=== PATIENT | male | born 1945 | race African-American/Black ===

== ENCOUNTER 2019-07-26 12:33 | Inpatient (IN) ==
[2019-07-26] MEDS ORDERED: ASPIRIN PO ONE (12:49)
[2019-07-26] MEDS ORDERED: ASPIRIN PR ONE (12:49)
--- NOTE | 2019-07-26 13:12 | Diag Imaging Result Doc PS360 ---
EXAM: CHEST-2 VIEWS 07/26/2019 HISTORY: CP TECHNIQUE: PA and lateral chest COMMENT: There is some apparent platelike fibrosis in the right base. The inspiration is slightly better than on 09/24/2018, otherwise are has been no significant change. IMPRESSION: Stable chest. Electronically signed by Yasir Lara 07/26/2019 1:10 PM
--- NOTE | 2019-07-26 13:26 | EKG Report ---
Test Performed on : 07/26/2019 12:40:16 PM Test Reason : CP Blood Pressure : / mmHG Vent. Rate : 062 BPM Atrial Rate : 062 BPM P-R Int : 160 ms QRS Dur : 104 ms QT Int : 448 ms P-R-T Axes : 073 016 054 degrees QTc Int : 454 ms Normal sinus rhythm. Normal ECG When compared with ECG of 17-JAN-2019 12:26, ST no longer depressed in Inferior leads Unconfirmed Result
[2019-07-26 13:39] LABS: BASO# 0.02 X1000 (0.0-0.2); BASO% 0.2 % (0.0-0.8); EOS# 0.64 X1000 (0.0-0.7); EOS% 7.5 % (0.0-10.0); HEMATOCRIT 27.1 % (42.0-52.0); HEMOGLOBIN 8.1 g/dL (14.0-18.0); IMM GRAN# 0.02 X1000 (0.0-0.04); IMM GRAN% 0.2 % (0.0-0.5); LYMPH# 2.35 X1000 (1.2-3.4); LYMPH% 27.5 % (20.5-51.1); MCH 23.7 PG (27-31); MCHC 29.9 g/dL (33-37); MCV 79.2 FL (81-99); MONO# 0.63 X1000 (0.11-0.59); MONO% 7.4 % (1.7-9.3); MPV 9.5 FL (7.4-10.4); NEUT# 4.88 X1000 (1.4-6.5); NEUT% 57.2 % (42.2-75.2); PLT 525 X1000 (130-400); RBC 3.42 XMIL (4.7-6.1); RDW 16.4 % (11.5-14.5); WBC 8.54 X1000 (4.8-10.8)
[2019-07-26 13:46] LABS: INR 1.6; PROTIME 19.4 Seconds (11.0-16.0)
[2019-07-26 13:47] LABS: PTT 39.3 Seconds (22.3-41.8)
[2019-07-26 14:04] LABS: ALB/GLOB RATIO 1.2; ALBUMIN 3.9 g/dL (3.5-5.0); CALCIUM 9.5 mg/dL (8.8-10.2); POTASSIUM 4.5 mmol/L (3.5-5.1); TOTAL BILIRUBIN 0.15 mg/dL (0.20-1.00); TOTAL PROTEIN 7.1 g/dL (6.3-8.3)
[2019-07-26 14:34] LABS: CK INDEX 1.3 (0.0-2.5); CK-MB 3.61 ng/mL (0.0-5.0)
[2019-07-26] MEDS ORDERED: NITROGLYCERIN SL ONE (16:34)
--- NOTE | 2019-07-26 19:25 | PROVIDER DOCUMENTATION ---
HPI-Chest Pain - General Chief Complaint: Chest Pain Stated Complaint: CHEST PAIN Time Seen by Provider: 07/26/19 13:54 Source: patient Allergies/Adverse Reactions: Patient Allergies Allergy/AdvReac Type Severity Reaction Status Date / Time No Known Allergies Allergy Verified 07/26/19 16:17 Home Medications: Home Medication List Medication Instructions Recorded Confirmed Last Taken Type Amlodipine [Norvasc] 10 mg PO DAILY 06/11/15 07/26/19 01/24/19 09:00 History Fenofibrate [Tricor] 145 mg PO DAILY 06/11/15 07/26/19 01/24/19 09:00 History Rivaroxaban [Xarelto] 15 mg PO DAILY 06/11/15 07/26/19 01/24/19 09:00 History Rosuvastatin Calcium [Crestor] 40 mg PO DAILY 10/12/17 07/26/19 01/24/19 09:00 History Allopurinol 300 mg PO BID 05/02/18 07/26/19 01/24/19 09:00 History Amiodarone [Cordarone] 200 mg PO BID 05/02/18 07/26/19 01/25/19 05:00 History Carvedilol [Coreg] 12.5 mg PO BID #120 tab 09/25/18 07/26/19 01/25/19 05:00 Rx Tramadol HCl [Ultram] 50 mg PO Q4H PRN PRN #10 tab 01/25/19 07/26/19 Unknown Rx - History of Present Illness-CP Nature of Presenting Problem: h/o HTN, HLD, / Afib, smoker, here for left sided chest pain of 2 days duration. has not taken medication,. pain is off and on and no associated diaphoresis, sob, orthopnea or pnd. He reports no other symptoms Location: reports: other (left sided) Chest Pain Radiation: reports: no radiation Quality of Pain: reports: other (stabbing) Onset/Duration: 2 days ago Timing: still present Modifying Factors: improves with: nothing Associated Symptoms: reports: denies symptoms Nitro Today/Relief: 0.4 mg x 1 Aspirin Treatment Today: 325 mg x 1 Similar Symptoms Previously?: Yes Recently Seen Here or By Another Healthcare Provider: Yes Review of Systems - Adult - REVIEW OF SYSTEMS - ADULT Constitutional: reports: no symptoms reported Eyes: reports: no symptoms reported Ears, Nose, Mouth & Throat: reports: no symptoms reported Cardiovascular: reports: see HPI Respiratory: reports: no symptoms reported Gastrointestinal: reports: no symptoms reported Genitourinary: reports: no symptoms reported Musculoskeletal: reports: no symptoms reported Integumentary: reports: no symptoms reported Neurological: reports: no symptoms reported Psychiatric: reports: no symptoms reported Hematologic/Lymphatic: reports: no symptoms reported Allergic/Immunologic: reports: no symptoms reported Past History - Adult - PAST MEDICAL HISTORY-ADULT Review of Records: reports: Nursing Assessment Review, Medications Reviewed, Social history reviewed & non-contributory. Major Childhood Illnesses: reports: denies history Cardiovascular: reports: HTN, hyperlipidemia Respiratory: reports: denies history, COPD Gastrointestinal: reports: denies history Obstetrical/Gynecological: reports: denies history Genitourinary: reports: kidney disease, other (L renal stent) Musculoskeletal: reports: arthritis, other (gout) Neurological: reports: denies history Endocrine/Immune: reports: denies history Other Conditions: reports: denies history - PRIOR SURGERIES/PROCEDURES Surgical/Procedure History: reports: indwelling device (L renal stent), other (kidney removed) - PRIOR HOSPITALIZATIONS Prior Hospitalizations: reports: for other non-related - IMMUNIZATION STATUS Childhood Immunizations: See Nurse Assessment Flu Vaccine: See Nurse Assessment - FAMILY HISTORY Family History: reviewed, not pertinent - SOCIAL HISTORY Smoking: cigarettes Substance Use: none/never Alcohol Use Frequency: never Physical Exam-General - CONSTITUTIONAL General Appearance: appears well, alert - EYES Eyes: PERRL/EOMI - HEAD, EARS, NOSE, MOUTH & THROAT HENMT: normocephalic/atraumatic - NECK Neck: non-tender, full range of motion, supple - RESPIRATORY Respiratory: chest non-tender, lungs clear, normal breath sounds - CARDIOVASCULAR Cardiovascular: regular rate, rhythm, no edema - GASTROINTESTINAL (ABDOMEN) Abdominal Exam: normal bowel sounds - MUSCULOSKELETAL Back Exam: normal inspection Extremity: normal range of motion, non-tender - SKIN Integumentary: normal color - PSYCHIATRIC Psych/Mental Status: oriented x 3 - HEART Score HEART Score: History: Moderately Suspicious HEART Score: ECG: Normal HEART Score: Age: > or = 65 Years HEART Score: Risk Factors for Atherosclerotic Disease: > or = 3 Risk Factors or History of Atherosclerotic Disease HEART Score: Troponin: 1-3x Normal Limit Total HEART Score:: 6 Progress - PLAN OF CARE/RESULTS Progress/Plan/Lab Results: Vital Signs - 8 hr 07/26/19 17:39 07/26/19 18:51 07/26/19 19:15 Temperature Pulse Rate 79 74 78 Respiratory Rate 23 21 18 Blood Pressure 138/77 138/77 O2 Sat by Pulse Oximetry 96 98 99 07/26/19 21:52 07/26/19 21:53 07/26/19 22:00 Temperature 97.5 F L Pulse Rate 67 65 74 Respiratory Rate 26 H 20 18 Blood Pressure 139/76 O2 Sat by Pulse Oximetry 98 97 100 07/26/19 22:15 07/26/19 22:22 07/26/19 22:23 Temperature Pulse Rate 67 59 L 74 Respiratory Rate 21 15 18 Blood Pressure 142/86 O2 Sat by Pulse Oximetry 96 98 100 07/26/19 22:30 07/26/19 22:32 07/26/19 22:45 Temperature Pulse Rate 75 75 74 Respiratory Rate 19 24 21 Blood Pressure 147/99 O2 Sat by Pulse Oximetry 98 99 97 07/26/19 23:49 Temperature Pulse Rate 60 Respiratory Rate 20 Blood Pressure O2 Sat by Pulse Oximetry 98 Laboratory Results - last 24 hr 07/26/19 07/26/19 07/26/19 00:49 00:49 12:50 WBC 8.54 RBC 3.42 L Hgb 8.1 L Hct 27.1 L MCV 79.2 L MCH 23.7 L MCHC 29.9 L RDW Std Deviation 16.4 H Plt Count 525 H MPV 9.5 Immature Gran % (Auto) 0.2 Neut % (Auto) 57.2 Lymph % (Auto) 27.5 Haines % (Auto) 7.4 Eos % (Auto) 7.5 Baso % (Auto) 0.2 Immature Gran # (Auto) 0.02 Neut # (Auto) 4.88 Lymph # (Auto) 2.35 Haines # (Auto) 0.63 H Eos # (Auto) 0.64 Baso # (Auto) 0.02 PT INR PTT (Actin FS) Sodium Potassium Chloride Carbon Dioxide Anion Gap BUN Creatinine Estimated GFR/1.73 m2 BUN/Creatinine Ratio Glucose Calculated Osmolality Calcium Total Bilirubin AST ALT Alkaline Phosphatase Creatine Kinase 199 Creatine Kinase Index CK-MB (CK-2) Troponin T < 0.010 Zuj-O-Rlfvyydaqhw Pept Total Protein Albumin Globulin Albumin/Globulin Ratio 07/26/19 07/26/19 07/26/19 12:50 12:50 12:50 WBC RBC Hgb Hct MCV MCH MCHC RDW Std Deviation Plt Count MPV Immature Gran % (Auto) Neut % (Auto) Lymph % (Auto) Haines % (Auto) Eos % (Auto) Baso % (Auto) Immature Gran # (Auto) Neut # (Auto) Lymph # (Auto) Haines # (Auto) Eos # (Auto) Baso # (Auto) PT 19.4 H INR 1.60 PTT (Actin FS) 39.3 Sodium 140 Potassium 4.5 Chloride 106 Carbon Dioxide 23 L Anion Gap 11 BUN 21 Creatinine 2.0 H Estimated GFR/1.73 m2 40 BUN/Creatinine Ratio 11 Glucose 95 Calculated Osmolality 282 Calcium 9.5 Total Bilirubin 0.15 L AST 15 ALT 9 L Alkaline Phosphatase 42 Creatine Kinase 268 H Creatine Kinase Index 1.3 CK-MB (CK-2) 3.61 Troponin T Qlr-K-Nnkjyvgbegy Pept 283 H Total Protein 7.1 Albumin 3.9 Globulin 3.2 Albumin/Globulin Ratio 1.2 07/26/19 07/26/19 12:50 16:41 WBC RBC Hgb Hct MCV MCH MCHC RDW Std Deviation Plt Count MPV Immature Gran % (Auto) Neut % (Auto) Lymph % (Auto) Haines % (Auto) Eos % (Auto) Baso % (Auto) Immature Gran # (Auto) Neut # (Auto) Lymph # (Auto) Haines # (Auto) Eos # (Auto) Baso # (Auto) PT INR PTT (Actin FS) Sodium Potassium Chloride Carbon Dioxide Anion Gap BUN Creatinine Estimated GFR/1.73 m2 BUN/Creatinine Ratio Glucose Calculated Osmolality Calcium Total Bilirubin AST ALT Alkaline Phosphatase Creatine Kinase Creatine Kinase Index CK-MB (CK-2) Troponin T < 0.010 < 0.010 Uvj-A-Tqewrawrlan Pept Total Protein Albumin Globulin Albumin/Globulin Ratio Orders Category Date Time Status Admit - [facility] Routine AdmDCTranf 07/26/19 23:51 Active Apply Mechanical Device [QM] ORDERED Care 07/26/19 23:51 Active Cardiac Monitoring DIRECTED Care 07/26/19 12:49 Active Notify MD if DIRECTED Care 07/26/19 23:51 Active Nursing- MD Consult Request ROUTINE Care 07/26/19 23:51 Active Oxygen Therapy- ED Nursing DIRECTED Care 07/26/19 12:49 Active Saline Loc DIRECTED Care 07/26/19 23:51 Active Saline Loc NOW Care 07/26/19 12:49 Active Vital Signs Order Q 4-HR ASSESS Care 07/26/19 23:51 Active Z-Document. for Tele Applied ORDERED Care 07/26/19 23:51 Active MD [Physician/Provider Consults] Routine Cons 07/26/19 23:51 Ordered NPO Diet 07/27/19 00:01 Active CHEST-2 VIEWS [RAD] Stat Exams 07/26/19 12:49 Completed CBC WITH ELECTRONIC DIFF [HEME] Stat Lab 07/26/19 12:50 Completed CK PROFILE [SP CHEM] Q8H Lab 07/26/19 00:49 Completed CK PROFILE [SP CHEM] Q8H Lab 07/27/19 07:51 Ordered CK PROFILE [SP CHEM] Q8H Lab 07/27/19 15:51 Ordered CK PROFILE [SP CHEM] Stat Lab 07/26/19 12:50 Completed COMPREHENSIVE METABOLIC PANEL [CHEM] Stat Lab 07/26/19 12:50 Completed LIPID PROFILE W/CALC LDL [LIPIDS] Routine Lab 07/27/19 06:00 Ordered PRO B-NATRIURETIC PEPTIDE Stat Lab 07/26/19 12:50 Completed PROTIME WITH INR [COAG] Stat Lab 07/26/19 12:50 Completed PTT [COAG] Stat Lab 07/26/19 12:50 Completed TROPONIN T Q8H Lab 07/26/19 00:49 Completed TROPONIN T Q8H Lab 07/27/19 07:51 Ordered TROPONIN T Q8H Lab 07/27/19 15:51 Ordered TROPONIN T Stat Lab 07/26/19 12:50 Completed TROPONIN T Stat Lab 07/26/19 16:41 Completed Acetaminophen [Tylenol] Med 07/26/19 23:51 Active 650 mg PO Q6H PRN PRN Allopurinol [Zyloprim] Med 07/27/19 09:00 Active 300 mg PO BID Amiodarone [Cordarone] Med 07/27/19 09:00 Active 200 mg PO BID Amlodipine [Norvasc] Med 07/27/19 09:00 Active 10 mg PO DAILY Aspirin Med 07/26/19 12:49 Discontinued 300 mg MI NOW ONE Aspirin Med 07/27/19 09:00 Active 325 mg PO DAILY Aspirin Med 07/26/19 12:49 Discontinued 325 mg PO NOW ONE Carvedilol [Coreg] Med 07/27/19 09:00 Active 12.5 mg PO BID Fenofibrate [Tricor] Med 07/27/19 09:00 Active 145 mg PO DAILY Nitroglycerin Sl [Nitroglycerin] Med 07/26/19 16:34 Discontinued 0.4 mg SL NOW ONE Nitroglycerin Sl [Nitroglycerin] Med 07/26/19 23:51 Active 0.4 mg SL Q5M PRN PRN Omeprazole [Prilosec] Med 07/27/19 07:00 Active 20 mg PO DAILY@0700 Ondansetron [Zofran] Med 07/26/19 23:51 Active 4 mg IV Q4H PRN PRN ROSUVAstatin [Crestor] Med 07/27/19 09:00 Active 40 mg PO DAILY Rivaroxaban [Xarelto] Med 07/27/19 09:00 Active 15 mg PO DAILY Oxygen Device Routine Oth 07/26/19 23:51 Active Telemetry [OM.EQ] Routine Oth 07/26/19 23:51 Active EKG [EKG] Stat Ther 07/26/19 12:49 Draft Transfer/Admit Order [TRANSFER] Routine Transfer 07/26/19 21:55 Completed Result Diagrams: 07/26/19 12:50 07/26/19 12:50 - REASSESSMENT Reassessment #1 Time Reassessed: 19:25 Status: improving (slightly improved after ASA , NTG still off and on chest pain. trpos are neg x2. diescussed admission with patient) - XRAY 1 XRAY Study: Chest ( EXAM: CHEST-2 VIEWS 07/26/2019 HISTORY: CP TECHNIQUE: PA and lateral chest COMMENT: There is some apparent platelike fibrosis in the right base. The inspiration is slightly better than on 09/24/2018, otherwise are has been no significant change. IMPRESSION: Stable chest. Electronically signed by Yasir Lara 07/26/2019 1:10 PM) Departure - Departure Date of Disposition Decision: 07/26/19 Time of Disposition Decision: 21:44 DIAGNOSIS: Chest pain Qualifiers: Chest pain type: unspecified Qualified Code(s): R07.9 - Chest pain, unspecified Disposition: ADMITTED INPATIENT 09 Certified Medical Emergency: Emergent Condition: Fair - Critical Care Note This patient required my direct & personal management of CC.: Yes Attestation - Physician/ ALF Attestation Patient care was provided by Advanced Practice Provider:: No The physician spent face to face time with patient:: Yes Advanced Practice Provider documentation review:: Supervising physician onsite and consulted in the evaluation and care of this patient. The physician did have a face to face encounter with the patient.
[2019-07-26] MEDS ORDERED: ZOFRAN IV PRN (23:51)
[2019-07-26] MEDS ORDERED: NITROGLYCERIN SL PRN (23:51)
[2019-07-26] MEDS ORDERED: TYLENOL PO PRN (23:51)
--- NOTE | 2019-07-27 06:34 | HISTORY AND PHYSICAL ---
PRIMARY CARE PHYSICIAN: Dr. Kwong. CHIEF COMPLAINT: Chest pain. HISTORY OF PRESENTING ILLNESS: A 73-year-old male with a history of hypertension, hyperlipidemia, chronic kidney disease, coronary artery disease, atrial fibrillation, chronic obstructive uropathy who presented to emergency department with 1-day history of having chest pain. He described it as pressure-like and mostly substernal and states that he had mild shortness of breath. The patient was evaluated in the emergency department. Due to his presenting symptoms, it was thought that we will place him for observation for further evaluation and management. At the time of my examination, the patient denied any headache, fever, chills, hemoptysis, melena or weight changes, but complained of chest pain and shortness of breath. PAST MEDICAL HISTORY: Includes hypertension, hyperlipidemia, coronary disease, atrial fibrillation, chronic kidney disease chronic obstructive uropathy. PAST SURGICAL HISTORY: Left ureteral stent. ALLERGIES: No known drug allergies. CURRENT MEDICATIONS: Allopurinol 300 mg p.o. b.i.d., amiodarone 200 mg p.o. b.i.d., Norvasc 10 mg p.o. daily, carvedilol 12.5 mg p.o. b.i.d., fenofibrate 145 mg p.o. daily, Xarelto 50 mg p.o. daily, lovastatin 40 mg p.o. daily, tramadol 50 mg p.o. q.4 hours. SOCIAL HISTORY: A 50+ pack years history of smoking. Denies any history of alcohol or illicit drug use. FAMILY HISTORY: No history of coronary disease. REVIEW OF SYSTEMS: Fourteen point review of system as listed in HPI. Other systems negative. PHYSICAL EXAMINATION: GENERAL: Cooperative, friendly male. He is resting comfortably now. VITAL SIGNS: Temperature 97.5 degrees, pulse 67, respiration 26, blood pressure 139/76. HEENT: Atraumatic, normocephalic. Extraocular movements intact. PERRLA. NECK: No masses. CHEST: Clear to auscultation. CARDIOVASCULAR: Regular rate and rhythm. ABDOMEN: Soft positive bowel sounds. EXTREMITIES: No edema. NEUROLOGIC: He is awake, alert, oriented x3. : No bladder distention. SKIN: Warm. LABORATORIES AND STUDIES: Sodium 140, potassium 4.5, chloride 106, CO2 23, BUN is 21, creatinine is 2.0, glucose 95. Troponin 0.010. WBC is 8.54, hemoglobin 8.1, hematocrit 27.1, platelets 525,000. Chest x-ray stable chest. ASSESSMENT: A 73-year-old male with a history of hypertension, hyperlipidemia, chronic kidney disease, coronary artery disease, atrial fibrillation who had presented to emergency department with complaint of 1-day history of chest pain. We will place the patient for observation and further evaluation and management. ASSESSMENT: 1. Chest pain, atypical. 2. Atrial fibrillation. 3. Hypertension. 4. Chronic kidney disease. PLAN: 1. We will admit patient to medical floor with telemetry. 2. Continue cardiac workup. Check EKG, serial cardiac enzymes. Have patient continue on aspirin. We will use sublingual nitroglycerin p.r.n. chest pain. 3. We will consult Cardiology. 4. We will continue to monitor patient on telemetry and continue his amiodarone. 5. Monitor blood pressure. Resume antihypertensive agents. 6. Monitor his renal function. 7. The patient is on Xarelto and this will suffice for his deep vein thrombosis prophylaxis. 8. We will continue to follow, reassess and make further recommendation based on patient's clinical course. cc: Alejandro Morales MD
[2019-07-27 06:42] LABS: CHOLESTEROL 102 mg/dL (0-200); HDL 29 mg/dL (35-55); LDL 54 mg/dL; TRIGLYCERIDES 94 mg/dL (39-160); VLDL 19 mg/dL
[2019-07-27] MEDS ORDERED: CORDARONE PO SCH (09:00)
--- NOTE | 2019-07-27 10:16 | PROGRESS NOTE ---
DATE: 07/27/2019 SUBJECTIVE: Mr. Teague said he has got the sharp pain in his left side that he has had for years, and it just seemed to be getting a little worse. He has a history of hypertension, hyperlipidemia, chronic kidney disease, coronary artery disease, atrial fibrillation, and chronic obstructive uropathy. He presented to the emergency room with a 1-day history of having chest pain, described as pressure-like mostly, and substernal. States he had mild shortness of breath. The patient was evaluated in the emergency room. Thought he was placed in for observation. PAST MEDICAL HISTORY: Includes hypertension, hyperlipidemia, coronary artery disease, atrial fibrillation, chronic kidney disease, chronic obstructive uropathy. PHYSICAL EXAMINATION: General: He says he is comfortable right now, but has a sharp pain in the left chest. Vital Signs: Temp 97.6 degrees, pulse 73, respirations 16, blood pressure 148/94. Weight 183 pounds. Height 5 feet 8 inches. HEENT: Pupils are equal round. Lungs: Clear in all lung vasquez. Cardiovascular: Regular rhythm and rate without murmur or S3. LABORATORY DATA: White count 8540, hematocrit 27, hemoglobin 8.1, platelet count 525,000. Sodium 140, potassium 4.5, chloride 106, BUN 21, creatinine 2.0, calcium was 9.5. CK was 199, 268, and 204. Troponin less than 0.01 x3. Chest x-ray: Stable chest. No acute infiltrates. CURRENT MEDICATIONS: He is on Zyloprim 300 mg b.i.d., Cordarone 200 mg b.i.d., Norvasc 10 mg a day, aspirin 325 mg a day, Coreg 12.5 mg b.i.d., Tricor 145 mg a day, Prilosec 20 mg a day, Crestor 40 mg a day, and Xarelto 15 mg a day. ASSESSMENT AND PLAN: 1. Chest pain in someone who apparently has a history of coronary artery disease. I suspect we will want to check a Myoview GXT. He appears comfortable and hemodynamically stable at this time. Cardiac enzymes are negative. 2. History of atrial fibrillation, rate controlled. 3. Hypertension. 4. Chronic kidney disease. Aware. 5. Apparently, he also has chronic obstructive uropathy as well. He is on high-dose Zyloprim, so I suspect this from uric acid. cc: Migel Torres MD
[2019-07-27] MEDS ORDERED: LEXISCAN ONE (14:25)
[2019-07-27] MEDS: CRESTOR PO SCH (16:00)
[2019-07-27] MEDS: ASPIRIN PO SCH (16:00)
--- NOTE | 2019-07-27 16:00 | Diag Imaging Result Document ---
PROCEDURE NAME: MYOCARDIAL PERF SCAN, STR/REST - 07/27/2019 SUMMARY: The patient was administered 12.8 mCi of technetium-99m sestamibi, after which resting cardiac images were obtained. The patient was subsequently administered Lexiscan 0.4 mg intravenously, after which the heart rate went up from 67 beats per minute to 80 beats per minute, and the blood pressure went from 152/88 to 125/73. With Lexiscan, the patient denied chest discomfort. Following the administration of Lexiscan, the patient was administered 37.4 mCi of technetium-99m sestamibi, after which gated stress cardiac images were obtained. Baseline ECG demonstrated sinus rhythm with occasional premature supraventricular complex, voltage criteria for left ventricular hypertrophy, and early precordial R wave transition. Nonspecific T wave abnormality demonstrated. With Lexiscan, there were no diagnostic ST segment changes. SPECT images were reconstructed in the short, horizontal long, and vertical long axis. Review of these images demonstrated no scintigraphic evidence of inducible myocardial ischemia or prior infarct with homogeneous uptake of radiopharmaceutical demonstrated throughout the left ventricle on both stress and resting images. Gated images demonstrate a calculated left ventricular ejection fraction of 66% with symmetrical wall motion/thickening. CONCLUSIONS: 1. Adequate response to Lexiscan. 2. Clinically negative for chest pain. 3. Electrocardiographically, there were no diagnostic ST segment changes on ECG following administration of Lexiscan. 4. Normal Lexiscan sestamibi images. cc: MD Sara Nagel PA
[2019-07-27] MEDS: ZYLOPRIM PO SCH ×2 (16:01→22:50)
[2019-07-27] MEDS: PRILOSEC PO SCH (16:01)
[2019-07-27] MEDS: COREG PO SCH ×2 (16:01→22:50)
[2019-07-27] MEDS: TRICOR PO SCH (16:01)
[2019-07-27] MEDS: NORVASC PO SCH (16:01)
[2019-07-27] MEDS: XARELTO PO SCH (16:01)
--- NOTE | 2019-07-27 16:02 | CARDIOLOGY CONSULTATION ---
DATE: 07/27/2019 REASON FOR CONSULT: Cardiology was consulted for chest pain. HISTORY OF PRESENT ILLNESS: This is a 73-year-old gentleman with a history of hypertension, hyperlipidemia, and chronic kidney disease is admitted with substernal chest pain which he describes as pressure-like sensation. He came to the emergency room and was admitted. Prior to this, he has had occasional episodes of chest discomfort which he describes as mild. There is no orthopnea, paroxysmal nocturnal dyspnea. REVIEW OF SYSTEM: A 14-point review of systems was done. GI System: There is no history of nausea, vomiting, diarrhea. There is no hematemesis or melena. Central nervous system: No focal weakness to suggest a CVA or TIA. PAST MEDICAL HISTORY: 1. Hypertension. 2. Paroxysmal atrial fibrillation. 3. Anticoagulation therapy. 4. Diabetes. 5. Chronic kidney disease. 6. Acquired absence of kidney, right side. 7. COPD. HOME MEDICATIONS: Allopurinol 300 mg b.i.d., amiodarone 200 b.i.d., Norvasc 10, Coreg 12.5 b.i.d., fenofibrate 145, Xarelto 15 mg, lovastatin 40, tramadol. SOCIAL HISTORY: The patient has a 50+ pack year history of smoking. Denies any alcohol abuse. PHYSICAL EXAMINATION: Vital Signs: Blood pressure 139/76. Cardiovascular: Jugular venous pressure was normal. First and second heart sounds were heard. There was no S3 gallop. Respiratory System: Normal air entry. There is no crepitations or rhonchi. Abdomen: Soft, nontender. There was no guarding or rigidity. Bowel sounds were heard. Central nervous system: Alert. Was moving all 4 extremities. Extremities: Examination of extremities revealed no pedal edema. LABORATORY EXAMINATION: Sodium 140, potassium 4.5, BUN 21, creatinine 2. Troponin 0.10. Chest x- ray was stable. Hemoglobin 8.1, hematocrit 27, platelet count of 525,000. ASSESSMENT AND PLAN: 1. Mr. Seth Teague is a 73-year-old Afro-[place] gentleman with history of hypertension, diabetes, renal insufficiency, paroxysmal atrial fibrillation, comes in with complaints of chest pain. His cardiac enzymes were negative. We will plan for a Cardiolite stress test to rule out ischemia. 2. Hemoglobin and hematocrit were slightly low. He is on anticoagulation therapy. There is no obvious bleeding diatheses. We will check stools for occult blood. 3. Hypertension. Continue with his home medications. 4. He has had history of paroxysmal atrial fibrillation. We will continue with amiodarone 200 mg a day. 5. Hypertension. He is on Norvasc and Coreg. Would recommend continuing the medications. 6. He also has gout. He is on allopurinol. I have not made any changes to his medications. Thank you for the consult. cc: hSan Ross MD
[2019-07-28] MEDS: PRILOSEC PO SCH (06:48)
[2019-07-28 07:25] VITALS: BP 124/82
[2019-07-28] MEDS ORDERED: CORDARONE PO SCH (09:00)
[2019-07-28] MEDS: ASPIRIN PO SCH (10:33)
[2019-07-28] MEDS: NORVASC PO SCH (10:33)
[2019-07-28] MEDS: TRICOR PO SCH (10:33)
[2019-07-28] MEDS: CRESTOR PO SCH (10:33)
[2019-07-28] MEDS: ZYLOPRIM PO SCH (10:33)
[2019-07-28] MEDS: XARELTO PO SCH (10:33)
[2019-07-28] MEDS: COREG PO SCH (10:33)
--- NOTE | 2019-07-28 10:42 | DISCHARGE SUMMARY ---
ADMISSION DATE: 07/27/2019 DISCHARGE DATE: 07/28/2019 HISTORY AND HOSPITAL COURSE: This is a 73-year-old male with history of hypertension, hyperlipidemia, chronic kidney disease, coronary artery disease, atrial fibrillation, chronic obstructive uropathy, who presented to the emergency department with a 1-day history of having chest pain described as pressure-like and mostly substernal, mild shortness of breath. The patient was evaluated in the emergency room and thought he would observe him. He had a GXT done which was negative. He has a history of atrial fibrillation and hypertension, chronic kidney disease. Note that hematocrit is 27, hemoglobin 8.1, MCV was 79. I did want him to get follow up and see. We need to probably check his stools for Hemoccult, but he would like to go home. DISCHARGE MEDICATIONS: I think he will be on his same medication. He will be on Zyloprim 300 mg b.i.d., Cordarone 200 mg daily, Norvasc 10 mg a day, aspirin 325 mg a day, Coreg 12.5 mg b.i.d., Tricor 145 mg daily, Prilosec 20 mg a day, and Xarelto 15 mg daily, Crestor 40 mg a day. cc: Migel Torres MD
== END 2019-07-28 11:06 | disposition home or self-care (01) | DRG 313 ==
LOC: EDIPHOLD 12:33 → ED 12:33 → SUATTDRO 23:52 → SUPCPDRO 23:52 → 4N 07-27 08:56
PROVIDERS: ATTEND Emergency Medicine